=== PATIENT | female | born 1995 | race African-American/Black ===

== ENCOUNTER 2017-05-27 01:06 | Emergency (ER) | payer SELFPAY ==
--- NOTE | 2017-05-27 01:44 | ER Document Report ---
HPI - HPI Patient complains to provider of: Cloudy urine with odor, urinary frequency Onset: Other - 1 week Quality of pain: No pain Pain Level: Denies Context: 21-year-old (induced early due to preeclampsia) complaining of urinary frequency, thirst, cloudy urine for 1 week. Last menstrual period early March 11, doubts , no contraceptive use. No pelvic or back pain . No fever or chills. Increased non malodorous vaginal discharge, no vaginal bleeding. Past Medical History - General Information source: Patient - Social History Smoking Status: Never Smoker Frequency of alcohol use: None Drug Abuse: None Lives with: Family Family History: Reviewed & Not Pertinent - Medical History Medical History: Negative Surgical Hx: Negative Vertical Provider Document - CONSTITUTIONAL Agree With Documented VS: Yes Exam Limitations: No Limitations - INFECTION CONTROL TRAVEL OUTSIDE OF THE [place] IN LAST 30 DAYS: No - HEENT HEENT: Normocephalic - NECK Neck: Supple - RESPIRATORY Respiratory: Breath Sounds Normal, No Respiratory Distress O2 Sat by Pulse Oximetry: 99 - CARDIOVASCULAR Cardiovascular: Regular Rate, Regular Rhythm - GI/ABDOMEN Gastrointestinal: Abdomen Soft, Abdomen Non-Tender, No Organomegaly, Normal Bowel Sounds - BACK Back: Normal Inspection. negative: CVA Tenderness-Right, CVA Tenderness-Left - MUSCULOSKELETAL/EXTREMETIES Musculoskeletal/Extremeties: MAEW - NEURO Level of Consciousness: Awake, Alert - DERM Integumentary: Warm, Dry, No Rash Course - Re-evaluation Re-evalutation: 05/27/17 02:06 Positive test , 1 RBC, 3 WBCs, trace of bacteria, urine culture pending. By using the first day of her last menses she is 10 weeks . Patient states that she is not from this area and needs referral to the health department [employer]. - Vital Signs Vital signs: Temp Pulse Resp BP Pulse Ox 98.5 F 83 18 121/71 99 05/27/17 01:10 05/27/17 01:10 05/27/17 01:10 05/27/17 01:10 05/27/17 01:10 Discharge - Discharge Clinical Impression: Early , Urinary frequency Condition: Good Disposition: HOME, SELF-CARE Instructions: ([facility]), [facility], [facility] ([facility]) Additional Instructions: Urine culture is pending [id number] daily multivitamin Referral to health department and [facility] Return to the emergency room for any abdominal pelvic pain or vaginal bleeding or any concerns.
[2017-05-27 02:00] LABS: APPEARANCE,URINE CLOUDY; BILIRUBIN,URINE NEGATIVE (NEGATIVE); COLOR,URINE YELLOW; GLUCOSE, URINE NEGATIVE (NEGATIVE); KETONES,URINE NEGATIVE (NEGATIVE); LEUKOCYTE ESTERASE,URINE TRACE (NEGATIVE); NITRITE,URINE NEGATIVE (NEGATIVE); PROTEIN,URINE NEGATIVE (NEGATIVE); URINE SPECIFIC GRAVITY 1.015; UROBILINOGEN,URINE NEGATIVE mg/dL (<2.0)
[2017-05-27 02:22] VITALS: BP 132/81
== END 2017-05-27 02:22 | disposition home or self-care (01) ==
LOC: ER 01:06
DX: R35.0 Frequency of micturition (principal); R63.1 Polydipsia; Z3A.10 10 weeks gestation of pregnancy
CPT/HCPCS: 81001; 81025; 87086; 99283

== ENCOUNTER 2017-11-16 20:43 | Outpatient (CLI) | payer SELFPAY ==
[2017-11-16 21:36] LABS: ABSOLUTE LYMPHOCYTES (AUTO) 1.1 10^3/uL (0.5-4.7); ABSOLUTE MONOCYTES (AUTO) 0.6 10^3/uL (0.1-1.4); ABSOLUTE NEUT (AUTO) 3.3 10^3/uL (1.7-8.2); BASOPHILS % (AUTO) 0.8 % (0-2); EOSINOPHILS % (AUTO) 0.3 % (0-6); HEMATOCRIT 32.3 % (36.0-47.0); LYMPHOCYTES % (AUTO) 22.7 % (13-45); MEAN CORPUSCULAR HEMOGLOBIN 25.5 pg (27.0-33.4); MEAN CORPUSCULAR HGB CONC 34.1 g/dL (32.0-36.0); MEAN CORPUSCULAR VOLUME 75 fl (80-97); MONOCYTES % (AUTO) 11.4 % (3-13); PLATELET COUNT 284 10^3/uL (150-450); RED BLOOD COUNT 4.33 10^6/uL (3.72-5.28); RED CELL DISTRIBUTION WIDTH 14.1 % (11.5-14.0); SEGMENTED NEUTROPHILS % (AUTO) 64.8 % (42-78); TOTAL CELLS COUNTED % (AUTO) 100 %
[2017-11-16 22:04] LABS: APPEARANCE,URINE CLOUDY; BILIRUBIN,URINE NEGATIVE (NEGATIVE); COLOR,URINE YELLOW; GLUCOSE, URINE NEGATIVE (NEGATIVE); KETONES,URINE TRACE mg/dL (NEGATIVE); LEUKOCYTE ESTERASE,URINE LARGE (NEGATIVE); NITRITE,URINE NEGATIVE (NEGATIVE); PROTEIN,URINE NEGATIVE (NEGATIVE); URINE SPECIFIC GRAVITY 1.021
[2017-11-16 22:15] LABS: URINE AMPHETAMINES SCREEN NEGATIVE; URINE BARBITURATES SCREEN NEGATIVE; URINE BENZODIAZEPINES SCREEN NEGATIVE; URINE COCAINE SCREEN NEGATIVE; URINE MARIJUANA (THC) SCREEN NEGATIVE; URINE METHADONE SCREEN NEGATIVE; URINE PHENCYCLIDINE SCREEN NEGATIVE
[2017-11-16 22:17] LABS: RUBELLA IGG ANTIBODY 3.82 IU/mL
[2017-11-16 22:33] LABS: RUBELLA INTERPRETATION NEGATIVE
--- NOTE | 2017-11-16 22:35 | RADIOLOGY REPORT (SQ) ---
EXAM DESCRIPTION: U/S OB LIMITED COMPLETED DATE/TIME: 11/16/2017 10:10 pm REASON FOR STUDY: presentation, MAYRA, placenta, EGA, EFW COMPARISON: None. TECHNIQUE: Limited transabdominal grayscale ultrasound for evaluation of specific requested obstetri reshma parameters. LIMITATIONS: None. FINDINGS: MAYRA: 14.8 cm. FHR: 137 beats per minute. PRESENTATION: Cephalic. OTHER: Estimated gestational age 38 weeks 3 days. Estimated weight 3515 g. anterior placenta. IMPRESSION: LIMITED OBSTETRICAL ULTRASOUND WITH MEASURED PARAMETERS DELINEATED ABOVE. Trimester of : Third trimester - 28 weeks to delivery. TECHNICAL DOCUMENTATION: JOB ID: [id number] [employer]- All Rights Reserved Reading location - IP/workstation name: [email or web address]
--- NOTE | 2017-11-16 23:20 | Non Stress Test Report ---
Non Stress Test Datetime Report Generated by CPN: 11/16/2017 23:20 DEMOGRAPHIC Test Number: 1 EGA NST: 41.0 INDICATION Indication for Study: Ordered by Provider Indication for Study (NST) Other: LC MONITORING Monitor Explained: Monitor Explained; Test Explained; Patient Verbalized Understanding Time on Monitor: 11/16/2017 22:16 Time off Monitor: 11/16/2017 23:02 NST Duration: 46 NST INTERVENTIONS NST Interventions: PO Hydration; Reposition Patient Physician Notified NST: Dr. Robbie BABY A: [id number] BABY A Movement : Present Contraction Frequency : 2-4 FHR Baseline : 140 Accelerations : 15X15 Decelerations : None Variability : Moderate 6-25bpm NST Review: Meets Criteria for Reactive NST NST Review and Verified By : WILBER Wayne NST Results: Reactive NST REPORT Report Trigger: Send Report
[2017-11-16 23:44] LABS: CHLAM PCR DETECTED (NOT DETECT); GON PCR NOT DETECTED (NOT DETECT)
[2017-11-16] MEDS ORDERED: AZITHROMYCIN 250 MG TABLET ONE (23:52)
[2017-11-16] MEDS ORDERED: ONDANSETRON 4 MG TAB.RAPDIS ONE (23:52)
[2017-11-16] MEDS ORDERED: AZITHROMYCIN 250 MG TABLET PO ONE (23:55)
[2017-11-16] MEDS ORDERED: ONDANSETRON 4 MG TAB.RAPDIS PO ONE (23:55)
[2017-11-18 07:42] LABS: HEPATITIS C VIRUS AB <0.1 s/co ratio (0.0-0.9)
[2017-11-18 16:24] LABS: HEPATITS B SURFACE ANTIGEN Negative (Negative)
== END 2017-11-17 00:05 | disposition home or self-care (01) ==
LOC: LC 20:43
PROVIDERS: ATTEND Obstetrics & Gynecology
PROC: 4A1HXCZ Monitoring of Products of Conception, Cardiac Rate, External Approach (ICD-10-PCS; principal; 2017-11-16)
DX: O47.1 False labor at or after 37 completed weeks of gestation (principal); O48.0 Post-term pregnancy; O36.8130 Decreased fetal movements, third trimester, not applicable or unspecified; O09.33 Supervision of pregnancy with insufficient antenatal care, third trimester; Z3A.41 41 weeks gestation of pregnancy
CPT/HCPCS: 59025; 86900; 86901; 36415; 86850; 85025; 86762; 86592; 81001; 87081; 87340; 86701; 80307; 87491; 87591; 86803; 86804; 76815; S0119

== ENCOUNTER 2017-11-26 23:45 | Observation (INO) | payer SELFPAY ==
[2017-11-27 00:33] LABS: APPEARANCE,URINE SLIGHTLY-CLOUDY; BILIRUBIN,URINE NEGATIVE (NEGATIVE); COLOR,URINE YELLOW; GLUCOSE, URINE NEGATIVE (NEGATIVE); KETONES,URINE TRACE mg/dL (NEGATIVE); LEUKOCYTE ESTERASE,URINE MODERATE (NEGATIVE); NITRITE,URINE NEGATIVE (NEGATIVE); PROTEIN,URINE NEGATIVE (NEGATIVE); URINE SPECIFIC GRAVITY 1.003; UROBILINOGEN,URINE NEGATIVE mg/dL (<2.0)
[2017-11-27] MEDS ORDERED: RINGERS SOLUTION,LACTATED 1,000 ML IV PRN ×2 (01:16→03:38)
[2017-11-27] MEDS ORDERED: CEFAZOLIN 1 GM/D5W RTU 1 GM/50 ML RTUPB IV ONE ×2 (01:35→02:41)
[2017-11-27 01:47] LABS: URINE AMPHETAMINES SCREEN NEGATIVE; URINE BARBITURATES SCREEN NEGATIVE; URINE BENZODIAZEPINES SCREEN NEGATIVE; URINE COCAINE SCREEN NEGATIVE; URINE MARIJUANA (THC) SCREEN NEGATIVE; URINE METHADONE SCREEN NEGATIVE; URINE PHENCYCLIDINE SCREEN NEGATIVE
--- NOTE | 2017-11-27 03:02 | RADIOLOGY REPORT (SQ) ---
EXAM DESCRIPTION: US LIMITED COMPLETED DATE/TME: 11/27/2017 00:00 CLINICAL HISTORY: 22 years, Female, cerebellum length MAYRA COMPARISON: None. TECHNIQUE: Limited third trimester obstetrical ultrasound. FINDINGS: heart rate 141 bpm. Presentation: Vertex MAYRA: 11.2 cm HC: 32.72 cm compatible with an estimated gestational age of 37 weeks, 1 day. FL: 6.94 cm compatible with an estimated gestational age of 35 weeks, 4 days. BPD: 9.15 cm compatible with an estimated gestational age of 37 weeks, 1 day. AC: 30.86 compatible with an estimated gestational age of 34 weeks, 6 days. Estimated weight of 2695 g. (5 pounds, 15 ounces) Transverse cerebellar diameter measurement of 3.55 cm. Estimated gestational age of 36 weeks, 1 day. IMPRESSION: 1. Single live intrauterine with estimated gestational age of 36 weeks, 1 day. heart rate of 141 bpm. Estimated weight of 2695 g 2. Transverse cerebellar diameter measurement of 3.55 cm 2010 [employer]- All Rights Reserved
[2017-11-27] MEDS ORDERED: CEFAZOLIN 1 GM/D5W RTU 1 GM/50 ML RTUPB IV SCH (09:00)
== END 2017-11-27 04:32 | disposition left against medical advice (07) ==
LOC: LC 23:45 → LR 11-27 03:40
PROVIDERS: ADMIT Obstetrics & Gynecology; ATTEND Obstetrics & Gynecology
DX: Z53.21 Procedure and treatment not carried out due to patient leaving prior to being seen by health care provider (principal)
CPT/HCPCS: 81001; 80307; 76815; J0690

== ENCOUNTER 2018-04-18 20:14 | Emergency (ER) | payer SELFPAY | END 2018-04-18 21:55 | disposition left against medical advice (07) | LOC: ER 20:14 | DX: Z53.21 Procedure and treatment not carried out due to patient leaving prior to being seen by health care provider (principal) ==

== ENCOUNTER 2019-04-02 20:14 | Emergency (ER) | payer OTHER, MEDICAID ==
[2019-04-02 20:25] VITALS: BP 136/87
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
== END 2019-04-02 21:43 | disposition home or self-care (01) ==
LOC: ER 20:14
DX: M54.5 Low back pain (principal); V43.02XA Car driver injured in collision with other type car in nontraffic accident, initial encounter; Y92.481 Parking lot as the place of occurrence of the external cause
CPT/HCPCS: 99283

== ENCOUNTER 2019-09-28 19:15 | Emergency (ER) | payer SELFPAY | END 2019-09-28 21:05 | disposition left against medical advice (07) | LOC: ER 19:15 | DX: Z53.21 Procedure and treatment not carried out due to patient leaving prior to being seen by health care provider (principal); R10.9 Unspecified abdominal pain ==